=== PATIENT | male | born 1990 | race Hispanic/Latino ===

== ENCOUNTER 2021-01-18 11:49 | Emergency (ER) | payer SELFPAY ==
[~2021-01-18] VITALS: Ht 177.8 cm; Wt 122.5 kg
[~2021-01-18 11:49] MED LIST: BACTRIM DS TAB1 EACH PO; IBUPROFEN400 MG PO
[2021-01-18] MEDS ORDERED: BACTRIM DS TAB1 EACH PO (12:39)
== END 2021-01-18 12:45 | disposition home or self-care (01) ==
LOC: FSED 12:34
DX: L02.415 Cutaneous abscess of right lower limb (principal)
CPT/HCPCS: 99283